=== PATIENT | male | born 1970 | race Caucasian/White ===

== ENCOUNTER 2019-06-05 05:09 | Emergency (ER) | payer OTHER ==
--- NOTE | 2019-06-05 05:26 | Emergency Department Record ---
History of Present Illness - General Chief Complaint: Cough Stated Complaint: DIFFICULTY SLEEPING/CHANTAL Time Seen by Provider: 06/05/19 05:11 Source: Patient Mode of Arrival: Ambulatory Limitations: No limitations - History of Present Illness Initial Comments: 49 yo male presents with a persistent cough for 6 weeks. He has felt congested and has a hoarse voice the last three days. The cough has become congested with yellow sputum the last three days. The last three nights he has not been able to sleep. He states he falls asleep then wakes up feeling light he is gasping for air. He has CARIDAD and uses a jaw splint for sleep. His last study was many years ago. He denies any fever. He feels like he breaks out in sweats at times. He feels like his heart is rapid at times. He states several individuals in his family had the same persistent cough lasting weeks. He has not seen his PCP in the last 6 weeks since this cough started. He is not a smoker. He is not treated for DM or HTN. No know dyslipidemia. No leg pain or swelling. He coughed up very thick yellow sputum during this interview. No blood in the sputum. MD Complaint: Cough, Nasal congestion, Sore throat, Other (Unalble to sleep) -: Days(s) Quality: Other Consistency: Intermittent Improves With: Nothing Worsens With: Other (coughing) Context: Sick contacts Associated Symptoms: Cough, Sore throat Treatments Prior to Arrival: Antibiotics (6 weeks ago) - Related Data Previous Rx's Medication Instructions Recorded Azithromycin [Zithromax] 250 mg PO DAILY #6 tablet 06/05/19 Fluticasone Propionate [Flonase] 2 spray EACH NARES DAILY #1 bottle 06/05/19 Methylprednisolone [Medrol Dose 4 mg PO DAILY #1 tab.ds.pk 06/05/19 Pack] Allergies Allergy/AdvReac Type Severity Reaction Status Date / Time No Known Drug Allergies Allergy Verified 06/05/19 06:34 Review of Systems Constitutional: Denies: Chills, Fever, Malaise, Weakness Eyes: Denies: Eye discharge ENT: Reports: Congestion, Throat pain. Denies: Ear pain Respiratory: Reports: Cough, Dyspnea. Denies: Hemoptysis, Stridor, Wheezes Cardiovascular: Reports: Palpitations. Denies: Chest pain, Dyspnea on exertion, Edema, Syncope Endocrine: Reports: Fatigue (due to poor sleep the last 3 nights. 1-2 hours per night) Gastrointestinal: Denies: Abdominal pain, Diarrhea, Nausea, Vomiting Genitourinary: Denies: Dysuria, Frequency, Hematuria Musculoskeletal: Denies: Arthralgia, Back pain, Myalgia Neurological: Denies: Headache, Numbness, Tingling, Tremors, Vertigo, Weakness Psychiatric: Reports: Anxiety Hematological/Lymphatic: Denies: Easy bleeding, Easy bruising Physical Exam - General General Appearance: Alert, Oriented x3, Cooperative, No acute distress Limitations: No limitations - Head Head exam: Atraumatic, Normal inspection - Eye Eye exam: Normal appearance, PERRL. negative: Conjunctival injection, Scleral icterus - ENT ENT exam: Mucous membranes moist, Normal orophraynx. negative: Mucous membranes dry Ear exam: Normal external inspection Nasal Exam: Discharge, Other (Mucosal thickening of the nose). negative: Active bleeding, Foreign body, Sinus tenderness Mouth exam: Normal external inspection Teeth exam: Normal inspection Throat exam: negative: Tonsillar erythema, Tonsillomegaly, Tonsillar exudate, R peritonsillar mass, L peritonsillar mass - Neck Neck exam: Normal inspection, Full ROM. negative: Lymphadenopathy - Respiratory Respiratory exam: Normal lung sounds bilaterally. negative: Accessory muscle use, Prolonged expiratory, Respiratory distress, Rhonchi, Stridor, Wheezes - Cardiovascular Cardiovascular Exam: Regular rate, Normal rhythm, Normal heart sounds Peripheral Pulses: 2+: Radial (R), Radial (L) - GI/Abdominal GI/Abdominal exam: Soft. negative: Tenderness - Rectal Rectal exam: Deferred - exam: Deferred - Extremities Extremities exam: negative: Calf tenderness, Pedal edema, Tenderness - Back Back exam: Denies: CVA tenderness (R), CVA tenderness (L) - Neurological Neurological exam: Alert, Oriented X3 - Psychiatric Psychiatric exam: Normal affect, Normal mood - Skin Skin exam: Dry, Intact, Normal color, Warm Course - Reevaluation(s) Reevaluation #1: 06/05/19 05:31 EKG #1: 05:26 Rate: 85 Rhythm: sinus [place]: normal Intervals: normal ST segments: normal none Normal EKG 06/05/19 05:59 The labs were reviewed No acute abnormality on the labs 06/05/19 06:09 The CXR was reviewed Normal CXR. No acute process. 06/05/19 06:10 We discussed the results of the tests and questions were answered at the time of discharge. The patient is doing well. He is congested on examination with the obvious sputum that is thick and yellow He will be treated with an antibiotic for likely infectious source and steroids We discussed at length reasons to immediately return to the ED as well as close follow up. The patient will call the PCP for close follow up of this ED visit to review this visit and the tests performed DC vitals were reviewed. I did mention that he may need to discuss a follow up sleep study with his doctor The patient was given a copy of the radiology reports to review with their family doctor for follow up Medical Decision Making - Lab Data Result diagrams: 06/05/19 05:23 06/05/19 05:23 Disposition Disposition: Discharge Clinical Impression: Bronchitis Disposition: Home, Self-Care Condition: (1) Good Instructions: Chronic Bronchitis (ED) Additional Instructions: Review this ER visit and the tests performed with your family doctor Call your doctor for the next available follow up appointment to discuss a possible follow up sleep study Return to the ER for a recheck if worse, any new concerns or questions Take the prescriptions provided as directed Prescriptions: Fluticasone Propionate [Flonase] 2 spray EACH NARES DAILY #1 bottle Methylprednisolone [Medrol Dose Pack] 4 mg PO DAILY #1 tab.ds.pk Azithromycin [Zithromax] 250 mg PO DAILY #6 tablet Forms: Patient Portal Access Time of Disposition: 06:02 Quality - Quality Measures Quality Measures: N/A - Blood Pressure Screening Does Patient Have Any of the Following: No Blood Pressure Classification: Pre-Hypertensive BP Reading Systolic Measurement: 143 Diastolic Measurement: 84 Screening for High Blood Pressure: < Pre-Hypertensive BP, F/U Documented > [G8950] Pre-Hypertensive Follow-up Interventions: Referral to alternative/primary care provider.
[2019-06-05 05:30] LABS: ABSOLUTE NEUTROPHIL COUNT 6.52; BASO % 0.4 % (0-6); EOS % 0.9 % (0-6); HEMATOCRIT 49.9 % (42.0-52.0); HEMOGLOBIN 16.6 gm/dl (14.0-18.0); LYMPH % 10.4 % (16-45); MEAN CELL VOLUME 89.1 fl (81-97); MEAN CORPUSCULAR HEMOGLOBIN 29.6 pg (27-33); MEAN CORPUSCULAR HGB CONC 33.3 g/dl (32-36); MEAN PLATELET VOLUME 10.5 fl (7.4-10.4); MONO % 7.3 % (0-9); PLATELET COUNT 190 K/uL (130-400); RED CELL DISTRIBUTION WIDTH 13.6 % (11.5-14.5); WHITE BLOOD COUNT W/O DIFF 8.1 K/uL (4.2-12.2)
[2019-06-05 05:39] LABS: BLOOD UREA NITROGEN 14 mg/dL (6-20); CREATININE 1.2 mg/dL (0.7-1.2); EST GLOMERULAR FILTRATION RATE > 60 mL/min
[2019-06-05 05:40] LABS: TOTAL PROTEIN 6.8 g/dL (6.6-8.7)
[2019-06-05 05:42] LABS: GLUCOSE,RANDOM 76 mg/dL (74-109)
[2019-06-05 05:44] LABS: ALT/SGPT 27 U/L (<41); AST/SGOT 29 U/L (10.0-50.0)
[2019-06-05 05:45] LABS: ALB/GLOB RATIO 1.5 (1.1-1.8); ALBUMIN 4.1 g/dL (4.0-5.0); ALKALINE PHOSPHATASE 119 U/L (40-129)
--- NOTE | 2019-06-05 06:06 | RADIOLOGY REPORT ---
EXAMINATION: Two View Chest Radiographs EXAM DATE: 06/05/2019 5:57 AM TECHNIQUE: Frontal and lateral views INDICATION: cough with yellow sputum COMPARISON: None ENCOUNTER: Not applicable FINDINGS: The heart, mediastinum, and pulmonary vasculature are normal. No lung consolidation or pleural effu sions are present. IMPRESSION: No acute disease process Dictated by: Berta Hollins DO on 06/05/2019 6:04 AM. .
== END 2019-06-05 06:45 | disposition home or self-care (01) ==
LOC: ER 05:09
DX: J20.9 Acute bronchitis, unspecified (principal); I10 Essential (primary) hypertension; E11.9 Type 2 diabetes mellitus without complications
CPT/HCPCS: 71046; 80053; 84484; 85025; 93005; 93010; 99284